=== PATIENT | male | born 1960 | race Caucasian/White ===

== ENCOUNTER 2021-05-21 14:30 | Emergency (ER) | payer BC, OTHER ==
[~2021-05-21] VITALS: Ht 172.7 cm; Wt 92.1 kg
[2021-05-21] MEDS ORDERED: LIDOCAINE HCL 1% LOCAL INJ 20 ML VIAL ONE (16:42)
[2021-05-21] MEDS ORDERED: LIDOCAINE HCL 1% LOCAL INJ 20 ML VIAL INJ ONE (17:00)
== END 2021-05-21 18:57 | disposition home or self-care (01) ==
LOC: ER 15:03
DX: S61.216A Laceration without foreign body of right little finger without damage to nail, initial encounter (principal); W26.0XXA Contact with knife, initial encounter; Y92.89 Other specified places as the place of occurrence of the external cause; E11.9 Type 2 diabetes mellitus without complications
CPT/HCPCS: 12001; 73140; 99283; J2001

== ENCOUNTER 2022-07-25 10:03 | Emergency (ER) | payer BC ==
[~2022-07-25] VITALS: Ht 172.7 cm; Wt 92.1 kg
== END 2022-07-25 10:30 | disposition home or self-care (01) ==
LOC: ER 10:14
DX: M54.6 Pain in thoracic spine (principal); M62.830 Muscle spasm of back; X50.0XXA Overexertion from strenuous movement or load, initial encounter; E11.9 Type 2 diabetes mellitus without complications
CPT/HCPCS: 99282